=== PATIENT | female | born 1955 | race Caucasian/White ===

== ENCOUNTER 2019-02-13 09:39 | Day surgery (SDC) | payer OTHER ==
[2019-02-13] MEDS: SOD CHLORIDE 0.9% 1,000 ML IV (11:14)
[2019-02-13] MEDS ORDERED: CEFAZOLIN 2 GM/50 ML (PMX) 50 ML IVPB (12:00)
[2019-02-13] MEDS: BUPIVACAINE 0.25% (MPF) 30 ML INJ INJ (12:45)
[2019-02-13] MEDS: LIDOCAINE 1%/EPI (1:100,000) (MDV) 20 ML INJ (12:45)
[2019-02-13] MEDS ORDERED: FENTAnyl 50 MCG/ML VIAL (12:56)
[2019-02-13] MEDS ORDERED: CEFAZOLIN 1 GM INJ (12:56)
[2019-02-13] MEDS ORDERED: PROPOFOL 20 ML (12:56)
[2019-02-13] MEDS ORDERED: KETOROLAC 30 MG INJ (12:57)
[2019-02-13] MEDS ORDERED: MIDAZOLAM 1 MG/ML 2 ML INJ (12:57)
[2019-02-13] MEDS ORDERED: ONDANSETRON 4 MG INJ (12:57)
[2019-02-13] MEDS ORDERED: BUPIVACAINE 0.25% (MPF) 30 ML INJ (12:58)
[2019-02-13] MEDS ORDERED: LIDOCAINE 1%/EPI (1:100,000) (MDV) 20 ML (13:23)
[2019-02-13] MEDS ORDERED: OXYCODONE/ACETAMINOPHEN (5/325) TAB PO (13:30)
[2019-02-13] MEDS ORDERED: LIDOCAINE 1%/EPI 30 ML INJ INJ (13:30)
[2019-02-13] MEDS ORDERED: LIDOCAINE 1%/EPI (1:100,000) (MDV) 20 ML INJ (13:30)
[2019-02-13] MEDS ORDERED: FENTAnyl 50 MCG/ML VIAL IV (13:30)
[2019-02-13] MEDS ORDERED: HYDROmorphONE 1 MG/5 ML IV SYRINGE IV (13:30)
[2019-02-13] MEDS ORDERED: ONDANSETRON 4 MG INJ IV (13:30)
[2019-02-13] MEDS ORDERED: IBUPROFEN 600 MG TAB PO ×2 (14:00)
[2019-02-13] MEDS ORDERED: KETOROLAC 30 MG INJ IV (14:00)
== END 2019-02-13 15:00 | disposition home or self-care (01) ==
LOC: SDS 09:39
DX: D17.24 Benign lipomatous neoplasm of skin and subcutaneous tissue of left leg (principal)
CPT/HCPCS: 14020; 88307